=== PATIENT | female | born 1970 | race Caucasian/White ===

== ENCOUNTER → 2017-07-02 | Outpatient (CLI) | payer BC ==
[~2017-07-02] MED LIST: ESCI1TAB10 PO; LSX40 PO
--- NOTE | 2017-07-02 14:32 | MAMMOGRAPHY REPORT ---
BILATERAL DIGITAL DIAGNOSTIC MAMMOGRAM TOMOSYNTHESIS WITH CAD AND TARGETED LEFT ULTRASOUND: 07/02/2017 CLINICAL HISTORY: The patient reports a palpable left breast lump for a few days. TECHNIQUE: Breast tomosynthesis in addition to standard 2D mammography was performed. Current study was also evaluated with a Computer Aided Detection (CAD) system. Bilateral CC and MLO 2-D and tomosy nthesis images and spot magnification right cc and ML views were obtained. COMPARISON: Comparison is made to exams dated: 11/17/2013 mammogram, 07/08/2012 mammogram, 07/08/2012 ul trasound, and 07/06/2012 mammogram - [facility]. BREAST COMPOSITION: The tissue of both breasts is extremely dense, which lowers the sensitivity of m ammography. FINDINGS: A triangle marker ibarra the site of the palpable lump in the left upper outer quadrant ant eriorly. At the site of the palpable lump there is a superficial oval 12 mm mass with partially circ umscribed and partially obscured margins. In the right 12:00 breast anteriorly, there is a small 3 m m cluster of faint punctate and amorphous calcifications. The calcifications are increased compared to prior 2013 and 2011 exams and are therefore indeterminant. The remainder of both breasts are not significantly changed, without suspicious masses, calcifications, or areas of architectural distortio n noted. Targeted ultrasound was performed of the area of the palpable lump pointed out by the patient, in the left breast at 1:00 approximately 3 cm from the nipple. At the site of the palpable lump there is a n oval hypoechoic solid 1.2 x 1.2 x 0.8 cm mass. This corresponds with the mammographic mass and is indeterminant. Ultrasound guided core needle biopsy is recommended for further evaluation. A few ot her small anechoic masses are seen within the left 1:00 breast, consistent with cysts. IMPRESSION: ACR BI-RADS CATEGORY 4: SUSPICIOUS, TARGETED ULTRASOUND ACR BI-RADS CATEGORY 4: SUSPICIO US 1. The palpable lump corresponds with a solid hypoechoic 1.2 cm mass in the left breast at 1:00. Th e mass is indeterminate and ultrasound-guided core needle biopsy is recommended for further evaluatio n. This may represent a fibroadenoma. 2. Small 3 mm cluster of calcifications in the right 12:00 anterior breast, increased compared to pr ior exams and is therefore indeterminant. Stereotactic biopsy is recommended for further evaluation. A phone call was made to the physician's office to confirm faxed results were received. The patient has been verbally notified of the results. She tentatively scheduled the biopsies before leaving the department. Approximately 10% of breast cancers are not detected with mammography. A negative mammographic report should not delay biopsy if a clinically suggestive mass is present. Smiley Johansen M.D. ah/:07/02/2017 10:30:36 Assistant Associate Professor: Robina BENZ(R)(Puneet), [facility] letter sent: Abnormal 4/5 BI-RADS Code: ACR BI-RADS Category 4: Suspicious Ultrasound BI-RADS: ACR BI-RADS Category 4: Suspici ous
== END | disposition home or self-care (01) ==
LOC: C.MAMM 09:06
PROVIDERS: ATTEND Family Medicine
DX: N63 Unspecified lump in breast (principal); R92.1 Mammographic calcification found on diagnostic imaging of breast

== ENCOUNTER → 2017-07-16 | Outpatient (CLI) | payer BC ==
--- NOTE | 2017-07-16 13:05 | Discharge Instructions ---
Discharge Instructions Procedure Procedure Date: Jul 16, 2017. Reason for visit: Right Calcs/Us Core Left Mass. Discharge Discharge Date: Jul 16, 2017. Discharge Diagnosis: status post breast biopsy Instructions Activity Recommendations: Additional Limitations (see below) Return to School/Work: no limitations Recommended Home Diet: No Limitations Provider Instructions: ACTIVITY RECOMMENDATIONS: * No lifting, pushing, pulling or exercising the affected side for three days. RETURN TO SCHOOL/WORK: * You may return to work/school after the procedure, but do not perform any strenuous activities for 24 to 48 hours. MEDICATIONS: * Tylenol (two 325 mg) every four to six hours if needed for mild pain (if not allergic to Tylenol). DIET: * Resume previous diet. SPECIAL CARE INSTRUCTIONS: * Keep biopsy site dry for 24 hours. May shower after 24 hours, but do not soak (bathe) incision. * May remove Tegaderm (plastic patch) tomorrow AFTER showering. * Leave the steri-strips on for one week. Allow the steri-strips to fall off by themselves. If not off after one week, you may remove them. You may place a Bandaid crosswise over the strips, if desired. * Apply ice 10 minutes on and 10 minutes off as needed. * Wear a bra at bedtime to sleep more comfortably for 2-3 days. * Your referring physician should have the results after approximately 5 to 7 business days. * Call for unusual bleeding, fever, drainage, etc or if you have any questions call during normal business hours or after hours call Dr Johansen, . FOLLOW UP VISIT: Follow-up with Referring Physician as scheduled. Allergies Coded Allergies: No Known Allergies (Unverified , 11/10/15) Jalil Cabrera Recommendations: Call your doctor if: * Temperature above 101 degrees * Pain not relieved by pain medicine ordered * There is increased drainage or redness from any incision * You have any unanswered questions or concerns. Your Doctors Instructions noted above were prepared by provider Smiley Johansen. Patient Signature Section: Patient Instructions Signature Page Yamila Bowman Patient (or Guardian) Signature/Date: I have read and understand the instructions given to me by my caregivers. Caregiver/RN/Doctor Signature/Date: The above-named patient and/or guardian has received patient instructions on this date. + Original Patient Signature Page (only) stays with chart. Please make copy for patient.
--- NOTE | 2017-07-16 15:31 | MAMMOGRAPHY REPORT ---
ULTRASOUND GUIDED BIOPSY LEFT BREAST: 07/16/2017 CLINICAL HISTORY: Left 1:00 breast mass. PATIENT CONSENT: The procedure, risks and benefits were discussed with the patient and informed writt en consent was obtained. A timeout was performed immediately prior to the procedure. PROCEDURE DESCRIPTION: With ultrasound guidance, aseptic technique, and lidocaine as the local anesth etic (1% lidocaine to anesthetize the skin and 1% lidocaine with epinephrine to anesthetize the deepe r tissues), the mass of concern in the left 1:00 breast was sampled 3 times with a 14-gauge Achieve b iopsy needle. Immediately thereafter, with ultrasound guidance, aseptic technique, and lidocaine as the local anesthetic, a metallic localizer clip was placed centrally in the mass. Direct pressure w as applied to the site immediately post procedure and hemostasis was achieved. Postprocedure unilate ral mammograms were performed to confirm placement of the clip in the expected location of the breast mass. The patient tolerated the procedure without complication. She was given wound care instructi ons. The specimens were sent to pathology for analysis. COMPARISON: Comparison is made to exams dated: 07/16/2017 mammogram, 07/02/2017 ultrasound, 07/02/2017 m ammogram, and 11/17/2013 mammogram - [facility]. IMPRESSION: ULTRASOUND GUIDED BIOPSY Ultrasound guided core needle biopsy of the left 1:00 breast mass, with clip placement. The patient will receive pathology results from her referring provider. Smiley Johansen M.D. ah/:07/16/2017 13:06:33 Attending Technologist: Millie BENZ(Juan Pablo)(M), [facility] Catalogue Compiler: Smiley Johansen MD, [facility]
--- NOTE | 2017-07-16 15:31 | MAMMOGRAPHY REPORT ---
STEREOTACTIC GUIDED BIOPSY RIGHT BREAST: 07/16/2017 CLINICAL HISTORY: Right 12:00 anterior breast calcifications. PATIENT CONSENT: The procedure, risks, benefits, and alternatives of stereotactic biopsy with clip pl acement were discussed with the patient, and verbal and written consent was obtained. A timeout was performed immediately prior to the procedure. PROCEDURE DESCRIPTION: With stereotactic guidance, aseptic technique, and lidocaine as a local anesth etic (1% lidocaine to anesthetize the skin and 1% lidocaine with epinephrine to anesthetize the deepe r tissues), the area of concern in the right 12:00 anterior breast was sampled multiple times with a 9-gauge vacuum-assisted biopsy needle ([employer]). The path of approach was craniocaudal. The spe cimen radiograph demonstrates calcifications to be present in the samples. The samples containing ca lcifications (labeled "A") were from the samples without calcifications (labeled "B "). A metallic marker clip was placed at the biopsy site. This was confirmed on postprocedure mammograms. Direct pressure was applied at the biopsy site and hemostasis was readily achieved. The patient parker erated the procedure without complication. She was given wound care instructions. COMPARISON: Comparison is made to exams dated: 07/16/2017 mammogram, 07/02/2017 ultrasound, 07/02/2017 m ammogram, and 11/17/2013 mammogram - [facility]. IMPRESSION: STEREOTACTIC GUIDED BIOPSY Stereotactic biopsy of indeterminate calcifications in the right 12:00 anterior breast, with clip debbie cement. The patient will receive pathology results from her referring provider. Smiley Johansen M.D. ah/:07/16/2017 13:39:44 Attending Technologist: Radha Del Cid RT(R)(M), [facility] Chicken Cutter: Millie Chin RT(R)(M), [facility]
--- NOTE | 2017-07-16 15:34 | MAMMOGRAPHY REPORT ---
BILATERAL DIGITAL DIAGNOSTIC MAMMOGRAM TOMOSYNTHESIS: 07/16/2017 CLINICAL HISTORY: Status post right breast stereotactic biopsy and status post left breast ultrasound -guided biopsy. TECHNIQUE: Breast tomosynthesis in addition to standard 2D mammography was performed. Right CC and ML 2-D views and left CC and ML tomosynthesis images including C views were obtained. COMPARISON: Comparison is made to exams dated: 07/02/2017 ultrasound, 07/02/2017 mammogram, 11/17/2013 m ammogram, 07/08/2012 mammogram, 07/08/2012 ultrasound, and 07/06/2012 mammogram - [facility]. BREAST COMPOSITION: The tissue of both breasts is extremely dense, which lowers the sensitivity of m ammography. FINDINGS: A preprocedural right cc view was obtained for biopsy planning purposes. Post procedural right CC and ML views were obtained, which shows a new biopsy marker clip at the site of the biopsied calcifications in the right 12:00 subareolar breast. No significant postbiopsy hematoma is seen. Postprocedural left CC and ML views were obtained, which shows a new biopsy marker clip at the site o f the biopsied mass in the left 1:00 breast. No significant postbiopsy hematoma is seen. IMPRESSION: POST PROCEDURE IMAGING FOR MARKER PLACEMENT New biopsy marker clips status post bilateral breast biopsies. Pathology results are pending. Approximately 10% of breast cancers are not detected with mammography. A negative mammographic report should not delay biopsy if a clinically suggestive mass is present. Smiley Johansen M.D. ah/:07/16/2017 13:56:59 Attending Technologist: Radha Del Cid RT(R)(M), [facility] Tire And Tube Repairer: Millie Chin RT(R)(M), [facility] BI-RADS Code: Post Procedure Imaging For Marker Placement
== END | disposition home or self-care (01) ==
LOC: C.MAMM 12:27
PROVIDERS: ATTEND Family Medicine
DX: R92.0 Mammographic microcalcification found on diagnostic imaging of breast (principal); N63 Unspecified lump in breast

== ENCOUNTER 2023-10-14 16:54 | Inpatient (IN) ==
--- NOTE | 2023-10-14 17:00 | ED Triage Note ---
Date of Service October 14, 2023 History of Present Illness This patient was briefly evaluated while in triage. An abbreviated physical exam was performed. This patient is a 53-year-old Female who presents to the ED for evaluation of abd pain wednesday night. Pain went away on Wednesday but now abd tenderness and dark urine and dark/yellowing into eyes. Physical Exam GENERAL: 53 year old female. In no acute distress. SKIN: No lesions or rashes. HEART: Regular rate and rhythm. LUNGS: Clear to auscultation. ABDOMEN: Bowel sounds normoactive. No guarding or rigidity. NEURO: Alert and oriented. No deficits. MUSCULOSKELETAL: No deformities to inspection of the extremities. PSYCH: Patient is pleasant and answers all questions appropriately. Initial orders for labs and / or imaging were placed and patient was placed in the waiting area until a bed is available. Please see further documentation for the full ED course.
--- NOTE | 2023-10-14 17:19 | Emergency Department Note ---
History of Present Illness General Chief complaint: Abdominal Pain Stated complaint: ABD PAIN Time Seen by Provider: 10/14/23 17:04 History of Present Illness Maximum Pain Intensity: 1 This is a 53-year-old female that presents to the emergency department be a private vehicle with complaints of "yellow urine, yellow eyes, RUQ abd discomfort". She notes pain started in the RUQ on this past Wednesday and then nearly resolved by Wednesday of this week. She has out pt labs and ultrasound of the RUQ performed today. They were abnormal and she was sent here. No fevers. Pain 11/24. Home Medications Medication Instructions Recorded Confirmed Type aripiprazole 5 mg tablet 5 mg PO DAILY 10/14/23 10/14/23 History dextroamphetamine-amphetamine 10 10 mg PO DAILY 10/14/23 10/14/23 History mg tablet escitalopram oxalate 10 mg tablet 10 mg PO DAILY 10/14/23 10/14/23 History escitalopram oxalate 20 mg tablet 20 mg PO HS 10/14/23 10/14/23 History lamotrigine 200 mg tablet 200 mg PO DAILY 10/14/23 10/14/23 History lisdexamfetamine 40 mg capsule 40 mg PO DAILY 10/14/23 10/14/23 History Allergies Allergy/AdvReac Type Severity Reaction Status Date / Time No Known Allergies Allergy Verified 10/14/23 19:25 Past Med/Surg History Surgical History Hx of oral surgery Family History (Updated 06/27/21 @ 11:20 by MARIKA Vasquez) Mother Thyroid disorder Hypertension Social History Smoking Status: Never smoker Hx Alcohol Use: No Hx Substance Use: No Preferred Language: Mexican Communication Ability: Effective Industrial Controls Technician Required: No Beliefs That Will Affect Care: None Feels Safe at Home: Yes Safety Concerns: Feels Safe At This Time Physical Activity Frequency: Does not Exercise Assistive Devices: None Review of Systems A total of 10 systems reviewed and were otherwise negative Physical Exam Vital Signs Vital Signs - 24 hr 10/14/23 16:57 Temperature 36.5 C Temperature Source Temporal Artery Scan Pulse Rate 69 Pulse Rhythm Regular Respiratory Rate 16 Respiratory Effort / Characteristics Non-Labored Spontaneous Respiratory Depth Normal Blood Pressure 130/92 Blood Pressure Mean 104 Pulse Oximetry 97 Oxygen Delivery Method Room Air Sepsis Recent Fever Within 48 Hours No Sepsis New/Unexplained Change in Mental Status No Sepsis Action Taken by Nursing No Action Required VITAL SIGNS - Vital signs and nursing notes were reviewed. Stable and afebrile. GENERAL -53-year-old female appearing her stated age who is in no acute distress. Communicates well with provider and answers questions appropriately. SKIN - Without rashes, mild jaundice. HEAD - NC/AT. EYES - Sclera mildly icteric. NOSE - Midline and without cyanosis. No epistaxis or purulent drainage noted. MOUTH/OROPHARYNX - Without perioral cyanosis. NECK - No nuchal rigidity. LUNGS - CTA CARDIAC - RRR ABDOMEN - Abdominal contour normal without pulsations or visible masses. No guarding or rigidity. No TTP. EXTREMITIES - No clubbing or peripheral cyanosis. NEUROLOGIC -no deficits. PSYCH - A&O Course Administered Medications Lactated Ringer's (Lr) 1,000 mls @ 80 mls/hr IV .[id number] [facility] Stop: 10/15/23 22:44 Last Infusion: 10/15/23 00:17 Dose: 0 mls/hr Documented By: Admin: 10/14/23 22:09 Dose: 80 mls/hr Documented By: FIOR Piperacillin Sod/Tazobactam (Sod 4.5 gm/ Dextrose) 100 mls @ 25 mls/hr IV Q8H [facility]; Protocol Stop: 10/25/23 00:59 Last Admin: 10/15/23 00:15 Dose: 25 mls/hr Documented By: FIOR Discontinued Medications Piperacillin Sod/Tazobactam Sod (Zosyn) 4.5 gm in 100 mls @ 200 mls/hr IV NOW ONE Stop: 10/14/23 19:03 Last Infusion: 10/14/23 20:04 Dose: Infused Documented By: Admin: 10/14/23 19:34 Dose: 200 mls/hr Documented By: KEVIN Medical Decision Making Laboratory Data 10/14/23 17:32 10/14/23 17:32 Lab Results 10/14/23 10/14/23 Range/Units 17:32 17:36 WBC 3.99 L (4.8-10.8) K/ul RBC 4.32 (4.20-5.40) M/uL Hgb 12.7 (12.0-16.0) g/dl Hct 38.6 (37.0-47.0) % MCV 89.4 (80.0-100.0) fL MCH 29.4 (25.0-34.0) pg MCHC 32.9 (32.0-36.0) g/dL RDW Std Deviation 39.4 (36.4-46.3) fL RDW Coeff of Robert 11.9 (11.5-14.5) % Plt Count 206 (130-400) K/uL MPV 11.4 (9.4-12.4) fL Immature Gran % (Auto) 0.0 % Neut % (Auto) 52.9 % Lymph % (Auto) 32.3 % Keith % (Auto) 10.3 % Eos % (Auto) 4.0 % Baso % (Auto) 0.5 % Neut # (Auto) 2.11 (1.40-6.50) K/uL Lymph # (Auto) 1.29 (1.20-3.40) K/uL Keith # (Auto) 0.41 (0.11-0.59) K/uL Eos # (Auto) 0.16 (0.00-0.50) K/uL Baso # (Auto) 0.02 (0.00-0.20) K/uL Immature Gran # (Auto) 0.00 L (0.01-0.20) K/uL Sodium 138 (136-145) mmol/L Potassium 4.0 (3.5-5.1) mmol/L Chloride 104 (98-107) mmol/L Carbon Dioxide 27 (21-32) mmol/L Anion Gap 7 (3-11) BUN 12 (6-23) mg/dl Creatinine 0.75 (0.6-1.2) mg/dl Est Cr Clr Drug Dosing 76.8 ml/min Est GFR ( Amer) 104.0 ml/min Est GFR (Non-Af Amer) 89.7 ml/min BUN/Creatinine Ratio 16.0 (10-20) Glucose 84 (70-99(Fasting)) mg/dl Calcium 9.8 (8.6-10.3) mg/dl Total Bilirubin 6.0 H (0.2-1.0) mg/dl AST 367 H (13-39) U/L ALT 604 H (7-52) U/L Alkaline Phosphatase 178 H (34-104) U/L Total Protein 7.8 (6.0-8.3) gm/dl Albumin 4.9 (3.4-5.0) gm/dl Globulin 2.9 (2.5-4.0) gm/dl Albumin/Globulin Ratio 1.7 (0.9-2) Lipase 96 H (11-82) U/L Urine Color Dark Yellow Urine Appearance Clear (Clear) Urine pH 5.5 (4.5-7.5) Ur Specific [place] 1.008 (1.000-1.030) Urine Protein Negative (Negative) Urine Glucose (UA) Negative (Negative) Urine Ketones Negative (Negative) Urine Blood Negative (Negative) Urine Nitrite Negative (Negative) Urine Bilirubin 1+ H (Negative) Urine Urobilinogen Negative (Negative) Ur Leukocyte Esterase Negative (Negative) MDM Narrative Patient was seen and evaluated as above in triage area noting period of high volume and acuity in the emergency department. Following my evaluation of the patient in the triage area, I did review imaging performed earlier today and also obtain laboratory studies here. Options of care were discussed with the patient. She is well-appearing and nontoxic. Vital signs are stable. Labs reveal mild leukopenia 3.99. No anemia. There is elevation of T. bili at 6, AST 367, ALT 604, alk phos 178. Lipase 96. Urinalysis reveals 1+ bilirubin. Ultrasound from earlier today reveals per radiologist: 1. Choledocholithiasis with at least mild intra and extrahepatic biliary ductal dilatation. GI assessment is advised. 2. Distended gallbladder with stones and sludge. There is no definitive sonographic evidence of acute cholecystitis. If there still clinical concern for acute cholecystitis a nuclear hepatobiliary scan should be obtained. 3. Trace pericholecystic fluid is observed. The patient clinical presentation does fit with these findings. I did discuss these with the on-call elevator constructor electric. At 1829 HRS: I spoke with Dr. Bruner. At this time we will proceed with broad-spectrum IV antibiotics, n.p.o. after midnight, ERCP tomorrow. I then ordered IV Zosyn as a broad-spectrum antibiotic as EMR reveals no known allergies. Patient also denies any known medication allergies. It is felt that the benefit of the medication outweighs risk. Case then discussed with the hospitalist service. Please refer to further documentation regarding her stay. Patient amenable to plan as noted above. GCS: 15 In the evaluation and treatment of this patient, the following differential diagnoses were considered: ASC, MD, Pneumonia, GERD, Cholecystitis, Ascending Cholangitis, Cholydocholithiasis, Bowel Obstruction, PE, Amongst Others. Impression & Plan Choledocholithiasis, Transaminitis Discharge Plan Visit Data Chief Complaint: Abdominal Pain Stated Complaint: ABD PAIN ED Provider: Austin Camacho ED Midlevel Provider: Williams Julio Discharge Problem: Choledocholithiasis, Transaminitis Patient Disposition: Admitted As Inpatient Condition: Good Discharge Instructions Interventions: ED Discharge Assessment Last Done: 10/14/23 20:38
[2023-10-14 17:46] LABS: Appearance Urine Clear (Clear); Blood Urine Negative (Negative); Color Urine Dark Yellow; Glucose Urine UA Negative (Negative); Ketones Urine Negative (Negative); Leukocyte Esterase Urine Negative (Negative); Nitrite Urine Negative (Negative); Protein Urine Negative (Negative); Specific Gravity Urine 1.008 (1.000-1.030); Urobilinogen Urine Negative (Negative); pH Urine 5.5 (4.5-7.5)
[2023-10-14 17:49] LABS: Basophils # (auto) 0.02 K/uL (0.00-0.20); Basophils % (auto) 0.5 %; Eosinophils # (auto) 0.16 K/uL (0.00-0.50); Hematocrit (blood only) 38.6 % (37.0-47.0); Hemoglobin 12.7 g/dl (12.0-16.0); Lymphocytes # (auto) 1.29 K/uL (1.20-3.40); Lymphocytes % (auto) 32.3 %; Mean Corpuscular Hemoglobin 29.4 pg (25.0-34.0); Mean Corpuscular Hgb Conc 32.9 g/dL (32.0-36.0); Mean Corpuscular Volume 89.4 fL (80.0-100.0); Mean Platelet Volume 11.4 fL (9.4-12.4); Monocytes # (auto) 0.41 K/uL (0.11-0.59); Monocytes % (auto) 10.3 %; Neutrophils # (auto) 2.11 K/uL (1.40-6.50); Neutrophils % (auto) 52.9 %; Platelet Count 206 K/uL (130-400); RDW Coefficient of Variation 11.9 % (11.5-14.5); RDW Standard Deviation 39.4 fL (36.4-46.3); Red Blood Count 4.32 M/uL (4.20-5.40); White Blood Count 3.99 K/ul (4.8-10.8)
[2023-10-14 17:56] LABS: Bilirubin Urine 1+ (Negative)
[2023-10-14 18:05] LABS: Calcium 9.8 mg/dl (8.6-10.3); Creatinine Clr Calc Pharmacy 76.8 ml/min; Est GFR (Non-African American) 89.7 ml/min
[2023-10-14 18:22] LABS: Albumin Globulin Ratio 1.7 (0.9-2); Albumin Level 4.9 gm/dl (3.4-5.0); Globulin 2.9 gm/dl (2.5-4.0); Total Protein 7.8 gm/dl (6.0-8.3)
[2023-10-14] MEDS ORDERED: PIPERACILLIN/TAZOBACTAM 4.5 GM/100 ML BAG IV ONE (18:34)
--- NOTE | 2023-10-14 19:26 | History & Physical Report ---
Date of Service October 14, 2023 Assessment & Plan (1) Choledocholithiasis: Plan: -Pt presenting with symptomatic choledocholithiasis with currently low concern for acute cholangitis -Exam and imaging does not suggest acute cholecystitis at present, we will defer surgery consult -GI consulted, awaiting recommendations -NPO for possible ERCP in AM -Continue mIVF -Continue Zosyn for now -Zofran PRN nausea, Toradol PRN pain -Trend CBC, CMP (2) Anxiety and depression: Plan: -Continue Lexapro -Pt also takes Abilify, atomoxetine and lamotrigine but doses could not be verified in [facility] EMR or [facility] EMR. Hold for now while NPO until verified in AM (3) Transaminitis: Plan: -Likely reactive to hepatobiliary obstruction -Management as above -Trend CMP Plan FENGI: NPO, IVF Code status: Full DVT prophylaxis: SCDs Isolation: None Unit: Medical/surgical Disposition planning: Likely home History of Present Illness Chief Complaint: Jaundice Primary Care Provider: Sloane Bailey DO Pt is 53 yo F with PMH depression/anxiety presenting with jaundice. Pt reports onset of sharp moderate severity RUQ pain on 10/10 about 5 hours after eating large meal heavy in oils/fats. Pain resolved transiently on 10/11. Reports dark urine on 10/11 which has been occurring intermittently since then. Noticed scleral icterus on 10/14 but has not had any further abdominal pain. Denies nausea, vomiting, fever, chills. Pt arrived to ER hemodynamically stable. Initial evaluation significant for AST 367, ALT 604, ALP 178, lipase 96, UA with 1+ bilirubin. RUQ US w/ choledocholithiasis and intra/extrahepatic biliary ductal dilatation, distended gallbladder with stones and sludge but no evidence of acute cholecystitis. ER interventions include Zosyn. At present, pt reports feeling well w/o acute complaint aside from continued mild icterus. Allergies Allergy/AdvReac Type Severity Reaction Status Date / Time No Known Allergies Allergy Verified 10/14/23 19:25 Home Medications Medication Instructions Recorded Confirmed Type aripiprazole 5 mg tablet 5 mg PO DAILY 10/14/23 10/14/23 History dextroamphetamine-amphetamine 10 10 mg PO DAILY 10/14/23 10/14/23 History mg tablet escitalopram oxalate 10 mg tablet 10 mg PO DAILY 10/14/23 10/14/23 History escitalopram oxalate 20 mg tablet 20 mg PO HS 10/14/23 10/14/23 History lamotrigine 200 mg tablet 200 mg PO DAILY 10/14/23 10/14/23 History lisdexamfetamine 40 mg capsule 40 mg PO DAILY 10/14/23 10/14/23 History Past Med/Surg History Surgical History Hx of oral surgery Family History (Updated 06/27/21 @ 11:20 by MARIKA Vasquez) Mother Thyroid disorder Hypertension Social History Smoking Status: Never smoker Hx Alcohol Use: Yes Alcohol Intake Frequency: 2-4 x/Month Hx Substance Use: No Feels Safe at Home: Yes Physical Activity Frequency: Does not Exercise Review of Systems Review of Systems: Per HPI/Subjective Physical Exam Physical Exam: General: well-appearing, no acute distress HEENT: PERRL, EOMI, conjunctivae clear without injection, mildy icteric sclerae, moist mucous membranes, clear oropharynx without exudate or erythema Neck: supple, trachea midline, no thyromegaly, no JVD, no cervical lymphadenopathy CV: RRR, normal S1 and S2, no murmurs Resp: CTAB, no increased work of breathing, no crackles or wheezes Abd: Soft, mild RUQ tenderness, negative Pérez sign, nondistended, no guarding or rebound, no hepatosplenomegaly MSK: Normal bulk of all four extremities Neuro: AOx3, no focal motor or sensory deficits Skin: no rashes or lesions, warm and dry, very faint jaundice Ext: no LE peripheral edema or erythema, capillary refill <2s in all four extremities, 2+ LE peripheral pulses b/l Results & Data Results & Data Vital Signs (Past 12 Hours) Vital Signs Temp Pulse Resp BP Pulse Ox O2 Del Method 10/14/23 16:57 36.5 C 69 16 130/92 97 Room Air Laboratory Results Laboratory Results WBC 3.99 K/ul (4.8-10.8) L 10/14/23 17:32 RBC 4.32 M/uL (4.20-5.40) 10/14/23 17:32 Hgb 12.7 g/dl (12.0-16.0) 10/14/23 17: Hct 38.6 % (37.0-47.0) 10/14/23 17: MCV 89.4 fL (80.0-100.0) 10/14/23 17: MCH 29.4 pg (25.0-34.0) 10/14/23 17: MCHC 32.9 g/dL (32.0-36.0) 10/14/23 17: RDW Std Deviation 39.4 fL (36.4-46.3) 10/14/23 17: RDW Coeff of Robert 11.9 % (11.5-14.5) 10/14/23 17: Plt Count 206 K/uL (130-400) 10/14/23 17: MPV 11.4 fL (9.4-12.4) 10/14/23 17: Immature Gran % (Auto) 0.0 % 10/14/23 17:32 Neut % (Auto) 52.9 % 10/14/23 17:32 Lymph % (Auto) 32.3 % 10/14/23 17:32 Rincon % (Auto) 10.3 % 10/14/23 17:32 Eos % (Auto) 4.0 % 10/14/23 17:32 Baso % (Auto) 0.5 % 10/14/23 17:32 Neut # (Auto) 2.11 K/uL (1.40-6.50) 10/14/23 17:32 Lymph # (Auto) 1.29 K/uL (1.20-3.40) 10/14/23 17:32 Rincon # (Auto) 0.41 K/uL (0.11-0.59) 10/14/23 17:32 Eos # (Auto) 0.16 K/uL (0.00-0.50) 10/14/23 17:32 Baso # (Auto) 0.02 K/uL (0.00-0.20) 10/14/23 17:32 Immature Gran # (Auto) 0.00 K/uL (0.01-0.20) L 10/14/23 17:32 Sodium 138 mmol/L (136-145) 10/14/23 17:32 Potassium 4.0 mmol/L (3.5-5.1) 10/14/23 17:32 Chloride 104 mmol/L (98-107) 10/14/23 17:32 Carbon Dioxide 27 mmol/L (21-32) 10/14/23 17:32 Anion Gap 7 (3-11) 10/14/23 17:32 BUN 12 mg/dl (6-23) 10/14/23 17:32 Creatinine 0.75 mg/dl (0.6-1.2) 10/14/23 17:32 Est Cr Clr Drug Dosing 76.8 ml/min 10/14/23 17:32 Est GFR ( Amer) 104.0 ml/min 10/14/23 17:32 Est GFR (Non-Af Amer) 89.7 ml/min 10/14/23 17:32 BUN/Creatinine Ratio 16.0 (10-20) 10/14/23 17:32 Glucose 84 mg/dl (70-99(Fasting)) 10/14/23 17:32 Calcium 9.8 mg/dl (8.6-10.3) 10/14/23 17:32 Total Bilirubin 6.0 mg/dl (0.2-1.0) H 10/14/23 17:32 AST 367 U/L (13-39) H 10/14/23 17:32 ALT 604 U/L (7-52) H 10/14/23 17:32 Alkaline Phosphatase 178 U/L (34-104) H 10/14/23 17:32 Total Protein 7.8 gm/dl (6.0-8.3) 10/14/23 17:32 Albumin 4.9 gm/dl (3.4-5.0) 10/14/23 17:32 Globulin 2.9 gm/dl (2.5-4.0) 10/14/23 17:32 Albumin/Globulin Ratio 1.7 (0.9-2) 10/14/23 17:32 Lipase 96 U/L (11-82) H 10/14/23 17:32 Urine Color Dark Yellow 10/14/23 17:36 Urine Appearance Clear (Clear) 10/14/23 17:36 Urine pH 5.5 (4.5-7.5) 10/14/23 17:36 Ur Specific [place] 1.008 (1.000-1.030) 10/14/23 17:36 Urine Protein Negative (Negative) 10/14/23 17:36 Urine Glucose (UA) Negative (Negative) 10/14/23 17:36 Urine Ketones Negative (Negative) 10/14/23 17:36 Urine Blood Negative (Negative) 10/14/23 17:36 Urine Nitrite Negative (Negative) 10/14/23 17:36 Urine Bilirubin 1+ (Negative) H 10/14/23 17:36 Urine Urobilinogen Negative (Negative) 10/14/23 17:36 Ur Leukocyte Esterase Negative (Negative) 10/14/23 17:36 Diagnostic Findings [place] [phone] Ultrasound Report Patient: KELLY IRENE Admit Date: 10/14/23 MR#: [id number] Address1: [address] [place] [address] Acct ID:[id number] Address2: Date: 1970 [facility] Zip: [place] [address] Age: 53 Location: [place] Sex: F Room/Bed: Att Phy: Lisandro Grey MD Diagnosis: RUQ PAIN Leia Phy: Sloane BaileyDLinoO. Service Date: 10/14/23 Fam Phy: Interpreting Phy: Johan Torres MDAdmit Phy: Ordering Phy: Lisandro Grey MD cc: ~ ULTRASOUND RIGHT UPPER QUADRANT ABDOMEN CLINICAL HISTORY: Right upper quadrant abdominal pain. COMPARISON STUDY: Abdominal CT dated 11/10/2015 TECHNIQUE: Real-time, grayscale, and color flow sonography of the right upper quadrant of the abdomen was performed. Images are reviewed in the transverse and longitudinal planes. FINDINGS: Liver: The liver is normal in size and echotexture. There is at least mild intrahepatic biliary ductal dilatation. The main portal vein is patent. Gallbladder: The gallbladder is distended, containing both stones and sludge. There is trace pericholecystic fluid. No gallbladder wall thickening is identified. A sonographic Pérez's sign is reportedly absent. A 5 mm gallstone is seen within the common bile duct. The common bile duct is dilated, measuring up to 0.9 cm in diameter. Pancreas: Visualized portions of the pancreatic head and body are normal in appearance. Right kidney: Survey images of the right kidney demonstrate normal size and echotexture. There is no hydronephrosis. Ascites: None. IMPRESSION: 1. Choledocholithiasis with at least mild intra and extrahepatic biliary ductal dilatation. GI assessment is advised. 2. Distended gallbladder with stones and sludge. There is no definitive sonographic evidence of acute cholecystitis. If there still clinical concern for acute cholecystitis a nuclear hepatobiliary scan should be obtained. 3. Trace pericholecystic fluid is observed. ACT 112: Negative or not required by law. Electronically signed by: Johan Torres M.D. 10/14/2023 3:50 PM Dictated: 10/14/231546 Transcribed: 10/14/231546 Supervising Physician Co-Signing Physician Notes Patient seen and examined, chart reviewed, case discussed with Dr. Mojica and I agree with the assessment and plan as above. In brief, patient is a 53 female presenting with RUQ abdominal pain. Patient had an acute episode on 10/10/23 which resolved on its own. On 10/11/23 she developed tea colored urine, scleral icterus and jaundice. She denies fever, chills. Abdominal pain and nausea has resolved. No additional complaints at this time. In the ER patient is afebrile, HD stable, NAD Skin - mild jaundice, no rash HEENT - NC/AT, PERRL, MMM, Neck supple Heart - +S1/S2, regular, no m/r/g Lungs - CTA Abd - +BS, soft, NT/ND, no masses/organomegaly Ext - warm, well perfused, no clubbing/cyanosis or edema Labs and images reviewed. Significant for Tbili=6, FRM=739, PZK=714 AS=287 Lipase=96 Assessment/Plan 53yo female presenting with icterus/jaundice following an acute episode of RUQ pain 3 days ago. Labs are significant for abnormal LFTs in mixed obstructive/hepatocellular pattern with Tbili=6 and YZ=866. Abdominal ultrasound performed today with choledocholithiasis with mild intra and extrahepatic biliary ductal dilatation, distended gallbladder with stones and sludge -Admit to medical -GI Consultation appreciated -Continue Zosyn -Gentle IVF -Patient NPO after midnight for possible ERCP in the morning -Will need consultation with General Surgery to discuss cholecystectomy -Remainder of plan as above Resident Activity Tracking Resident Involvement: Resident Care Provided Care Provided: Adult [facility]
[2023-10-14] MEDS ORDERED: KETOROLAC TROMETHAMINE 15 MG/ML VIAL IV PRN (21:45)
[2023-10-14] MEDS ORDERED: ONDANSETRON INJ 2 MG/ML 2 ML VIAL IV PRN (21:45)
--- NOTE | 2023-10-14 21:54 | Billing Data ---
Date of Service October 14, 2023 Coding Level of Care Code 33512 INT INP/OBS CARE
[2023-10-14] MEDS ORDERED: PIPERACILLIN/TAZOBACTAM 4.5 GM in DEXTROSE 5% MINI-B 100 ML IV SCH (22:00)
[2023-10-14] MEDS: LACTATED RINGER'S 1,000 ML IV SCH (22:09)
[2023-10-15] MEDS: PIPERACILLIN/TAZOBACTAM 4.5 GM in DEXTROSE 5% MINI-B 100 ML IV SCH ×3 (00:15→16:02)
--- NOTE | 2023-10-15 06:45 | Hospitalist Progress Note ---
Date of Service October 15, 2023 Assessment & Plan (1) Choledocholithiasis: (2) Anxiety and depression: (3) Transaminitis: Plan Patient is 53 yo F with PMH depression/anxiety. Initial evaluation significant for AST 367, ALT 604, ALP 178, lipase 96, UA with 1+ bilirubin. RUQ US w/ choledocholithiasis and intra/extrahepatic biliary ductal dilatation, distended gallbladder with stones and sludge but no evidence of acute cholecystitis. ER interventions include Zosyn. Choledocholithiais -Pt presenting with symptomatic choledocholithiasis with currently low concern for acute cholangitis -Exam and imaging does not suggest acute cholecystitis at present, we will defer surgery consult -GI consulted: -ERCP completed in early PM: gallstone removal via balloon performed; stent placed in CBD - avoid aspirin and NSAIDs for 5 days - started on clear liquid diet today, mIVFs discontinued - F/U in 6 weeks for stent removal - continue on antibiotics for 14 days - consult, F/U w/ Gen Surg for possible elective cholecystectomy -Continue Zosyn for now -Zofran PRN nausea, Toradol PRN pain -Trend CBC, CMP Transaminitis -Likely reactive to hepatobiliary obstruction -Management as above -Trend CMP Anxiety/depression -Continue Lexapro -Pt also takes Abilify, atomoxetine and lamotrigine but doses could not be verified in [facility] EMR or [facility] EMR. Hold for now while NPO until verified in AM FENGI: NPO, IVF Code status: Full DVT prophylaxis: SCDs Isolation: None Unit: Medical/surgical Disposition planning: Likely home Admission and Anticipated Discharge Date Admission Date: October 14, 2023 Supervising Physician Co-Signing Physician Notes Attending attestation Pt seen and examined in concert with Dr. Vargas. In agreement with the documented findings as noted in the resident documentation with any exceptions or additions as noted here. Resting comfortably in bed without acute complaint at present. On examination, S1/S2 nl RRR no MCG. CTAB. Abd NT/ND BS+ve VS: 116/80, 64, 16, 36.6C, 97 RA Data: WBC 2.78, hgb 11.3, Cr 0.79, Alk phos 153, elevated LFTs Choledocholithaisis - GI consult - ERCP today and continue symptomatic care. Trend CBC, CMP. f/u GI recommendations post procedure Else see resident documentation as noted. Subjective Patient is 53 yo F with PMH depression/anxiety who presented to ED with jaundice.Pt reported onset of sharp moderate severity RUQ pain on 10/10 about 5 hours after eating large meal heavy in oils/fats. Pain resolved transiently on 10/11. Since then, pt noticed dark urine on 10/11 which has been occurring intermittently since then. Noticed scleral icterus on 10/14 but has not had any further abdominal pain. Denied nausea, vomiting, fever, chills. Pt arrived to ER hemodynamically stable. At present, pt reports feeling well with only minor epigastric and RUQ abdominal discomfort (12/25), continued mild icterus, and jaundiced skin. Review of Systems Constitutional: no fever, no chills and no body aches Respiratory: no cough, no chest congestion and no dyspnea Cardiovascular: no chest pain, no palpitations and no lightheadedness Gastrointestinal: + abdominal pain; no nausea (was nauseou s on Wednesday, started to get better Wed), no vomiting, no constipation and no diarrhea/loose stools Genitourinary: + problem reported (dark yellow colored urine); no dysuria, no urinary frequency and no urinary urgency Physical Exam Constitutional: WD/WN, vitals as above Eyes: + scleral abnormality (jaundiced sclera, most prominent in l. eye) Respiratory: normal respiratory effort, lungs clear to auscultation Cardiovascular: RRR, no murmur, no edema Gastrointestinal (Abdomen): Inspection/Auscultation: normal bowel sounds Percussion/Palpation: + abdomen tender; no splenomegaly Skin: + jaundice Psychiatric: A+Ox3, euthymic affect Results & Data Results & Data Vital Signs (Past 12 Hours) Vital Signs Temp Pulse Pulse Pulse Resp BP Pulse Ox 10/14/23 21:00 36.6 C 54 L 16 110/80 100 10/14/23 20:22 62 18 123/80 98 10/14/23 19:40 58 L O2 Del Method 10/14/23 21:00 Room Air 10/14/23 20:22 Room Air 10/14/23 19:40 Resident Activity Tracking Resident Involvement: Resident Care Provided Care Provided: Adult [facility]
--- NOTE | 2023-10-15 07:21 | Gastrointestinal Consultation ---
Date of Consultation October 15, 2023 Assessment & Plan (1) Choledocholithiasis: (2) Cholelithiasis: Gallbladder distention and stones on US. Will need eventual cholecystectomy. Plan - surgical consult for eventual cholecystectomy. - Agree w NPO, IV fluids and Zosyn. - ERCP today by Dr. Maximo Klein. Further recommendations to follow. ERCP procedure including risks of bleeding, perforation, pancreatitis were explained to the pt. She would like to go forward w the procedure. Supervising Physician Co-Signing Physician Notes I saw and evaluated the patient, she presents with signs and symptoms related to choledocholithiasis. ERCP has been requested for decompression of the biliary tree. I discussed risks and benefits of the procedure with the patient to include bleeding, infection, perforation, pain, failed biliary cannulation and the need for follow-up studies. History of Present Illness Reason for Consultation: symptomatic choledocholithiasis, ERCP Requesting Physician: Dr. Mojica Attending Physician: Marcel Hollis MD History of Present Illness Ms. Yamila Bowman is a 53 yr old female pt of Dr. Bailey w a hx of HTN, mood disorder, who presented to the ED yesterday for RUQ abd pain that began on Wednesday and has waxed/waned since then. She has had mild jaundice, dark urine. She has not had fevers, chills, sweats, diarrhea, vomiting or jason colored BMs. She has had some nausea. On arrival, LFTs were elevated w a T Bili of 6.0 and US from earlier on 10/14 showed Choledocholithiasis w mild intra/extrahepatic biliary ductal dilatation as well as a distended gallbladder w stones and sludge. This morning, she is hemodynamically stable, she is on Zosyn, doesn't have leukocytosis or fever, and reports mild epigastric tenderness on palpation, otherwise comfortable. She is NPO. 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 Allergies Allergy/AdvReac Type Severity Reaction Status Date / Time No Known Allergies Allergy Verified 10/14/23 19:25 Home Medications Medication Instructions Recorded Confirmed Type aripiprazole 5 mg tablet 5 mg PO DAILY 10/14/23 10/14/23 History dextroamphetamine-amphetamine 10 10 mg PO DAILY 10/14/23 10/14/23 History mg tablet escitalopram oxalate 10 mg tablet 10 mg PO DAILY 10/14/23 10/14/23 History escitalopram oxalate 20 mg tablet 20 mg PO HS 10/14/23 10/14/23 History lamotrigine 200 mg tablet 200 mg PO DAILY 10/14/23 10/14/23 History lisdexamfetamine 40 mg capsule 40 mg PO DAILY 10/14/23 10/14/23 History Patient History Surgical History Hx of oral surgery Family History Mother Thyroid disorder Hypertension Social History Smoking Status: Never smoker Hx Alcohol Use: No Hx Substance Use: No Preferred Language: Citizen Of [place] Communication Ability: Effective [id number] Android Developer Required: No Beliefs That Will Affect Care: None Feels Safe at Home: Yes Safety Concerns: Feels Safe At This Time Physical Activity Frequency: Does not Exercise Assistive Devices: None Review of Systems Review of Systems: ROS: Gen: Denies weakness, fevers, weight loss Eyes: No eye redness, or pain, no recent vision changes Resp: No SOB, no cough Cardio: No palpitations/irregular beats, no chest pain GI: As per HPI, otherwise (-) : Denies pain on urination Skin: No jaundice, itching or new rashes Physical Exam Constitutional: WD/WN, vitals as above Eyes: PEARLA, mild icterus ENMT: external ear and nose normal, oropharynx normal Neck: trachea midline, no thyromegaly Respiratory: normal respiratory effort, lungs clear to auscultation Cardiovascular: RRR, no murmur, no edema Gastrointestinal (Abdomen): soft, non tender, non distended, no masses, mild epigastric tenderness Musculoskeletal: no cyanosis or clubbing, extremities motor strength 5/5 Skin: mild jaundice, no rashes Neurologic: PERRL, EOMI, accommodation nl, no face palsy, no dysarthria Psychiatric: A+Ox3, euthymic affect Lymphatic: no cervical or axillary lymphadenopathy Results & Data Vital Signs (Past 12 Hours) Vital Signs Temp Pulse Pulse Pulse Resp BP Pulse Ox 10/14/23 21:00 36.6 C 54 L 16 110/80 100 10/14/23 20:22 62 18 123/80 98 10/14/23 19:40 58 L O2 Del Method 10/14/23 21:00 Room Air 10/14/23 20:22 Room Air 10/14/23 19:40 Laboratory Results WBC 3.9, Hb 12.7, Hct 38, Plts 206, Na 138, K 4.0, Cl 27, CO2 7, BUN 12, Cr 0.75, glucose 84. T Bili 6.0, AST 367, Alt 604, Alk Phos 178 lipase 96. Diagnostic Findings US 10/14/23 (outpatient account): 1. Choledocholithiasis with at least mild intra and extrahepatic biliary ductal dilatation. GI assessment is advised. 2. Distended gallbladder with stones and sludge. There is no definitive sonographic evidence of acute cholecystitis. If there still clinical concern for acute cholecystitis a nuclear hepatobiliary scan should be obtained. 3. Trace pericholecystic fluid is observed.
[2023-10-15] MEDS: ESCITALOPRAM OXALATE 20 MG TAB PO SCH (07:31)
[2023-10-15] MEDS: lamoTRIgine 100 MG TAB PO SCH (07:31)
[2023-10-15] MEDS: ARIPiprazole 5 MG TAB PO SCH (07:31)
[2023-10-15 08:32] LABS: Hemoglobin 11.3 g/dl (12.0-16.0); Mean Corpuscular Hgb Conc 34.2 g/dL (32.0-36.0); Mean Corpuscular Volume 87.5 fL (80.0-100.0); Mean Platelet Volume 11.5 fL (9.4-12.4); Platelet Count 175 K/uL (130-400); RDW Coefficient of Variation 12.1 % (11.5-14.5); RDW Standard Deviation 39.3 fL (36.4-46.3); Red Blood Count 3.77 M/uL (4.20-5.40); White Blood Count 2.78 K/ul (4.8-10.8)
--- NOTE | 2023-10-15 08:38 | Anesthesiology Consultation ---
Date of Service October 15, 2023 Assessment & Plan (1) Encounter for pre-operative examination: Chart Review Chart Review: Acceptable Risk for Surgery and Patient NOT seen in Pre Admission Testing Consults Requested none Additional Notes preop EKG ordered History Surgery Operation Date: 10/15/23 13:35 Proposed Procedures p Endoscopic Retrograde Cholangiopancreatogram - Maximo Klein, Height/Weight Height: 5 ft 6 in Weight: 55.5 kg Allergies Allergy/AdvReac Type Severity Reaction Status Date / Time No Known Allergies Allergy Verified 10/14/23 19:25 Medications Home Medications Medication Instructions Recorded Confirmed Last Taken aripiprazole 5 mg tablet 5 mg PO DAILY 10/14/23 10/14/23 Unknown dextroamphetamine-amphetamine 10 10 mg PO DAILY 10/14/23 10/14/23 Unknown mg tablet escitalopram oxalate 10 mg tablet 10 mg PO DAILY 10/14/23 10/14/23 Unknown escitalopram oxalate 20 mg tablet 20 mg PO HS 10/14/23 10/14/23 Unknown lamotrigine 200 mg tablet 200 mg PO DAILY 10/14/23 10/14/23 Unknown lisdexamfetamine 40 mg capsule 40 mg PO DAILY 10/14/23 10/14/23 Unknown Active Medications Generic Name Dose Route Start Last Admin Trade Name Freq PRN Reason Stop Dose Admin Aripiprazole 5 mg 10/15/23 09:00 10/15/23 07:31 Aripiprazole 5 Mg Tab PO 11/14/23 08:59 5 mg DAILY ALBIN Administration Escitalopram Oxalate 20 mg 10/15/23 09:00 10/15/23 07:31 Escitalopram Oxalate 20 Mg Tab PO 11/14/23 08:59 20 mg DAILY ALBIN Administration Lactated Ringer's 1,000 mls @ 80 mls/hr 10/14/23 21:45 10/15/23 03:56 Lr IV 10/15/23 22:44 80 mls/hr .[id number] ALBIN Infusion Piperacillin Sod/Tazobactam 100 mls @ 25 mls/hr 10/15/23 01:00 10/15/23 07:32 Sod 4.5 gm/ Dextrose IV 10/25/23 00:59 25 mls/hr Q8H ALBIN Administration Protocol Influenza Virus Vaccine Quadrival 0.5 ml 10/15/23 09:00 10/15/23 07:31 Influenza Virus Quadrivalent Vaccine (Iiv4) 0.5 Ml Syr IM 10/15/23 09:01 Not Given .ONCE ONE Lamotrigine 200 mg 10/15/23 09:00 10/15/23 07:31 Lamotrigine 100 Mg Tab PO 11/14/23 08:59 200 mg DAILY ALBIN Administration Past Family History Family History Mother Thyroid disorder Hypertension Past Surgical History Surgical History Hx of oral surgery Social History Smoking Status: Never smoker Hx Alcohol Use: No Hx Substance Use: No Physical Exam Vital Signs Last Vital Signs Temp 98.4 F 10/15/23 07:46 Pulse 59 L 10/15/23 07:46 Resp 16 10/15/23 07:46 BP 112/76 10/15/23 07:46 Pulse Ox 100 10/15/23 07:46 O2 Del Method Room Air 10/15/23 07:46 Testing Laboratory Results 10/15/23 08:07 Urine Color Dark Yellow 10/14/23 17:36 Urine Appearance Clear (Clear) 10/14/23 17:36 Urine pH 5.5 (4.5-7.5) 10/14/23 17:36 Ur Specific [place] 1.008 (1.000-1.030) 10/14/23 17:36 Urine Protein Negative (Negative) 10/14/23 17:36 Urine Glucose (UA) Negative (Negative) 10/14/23 17:36 Urine Ketones Negative (Negative) 10/14/23 17:36 Urine Nitrite Negative (Negative) 10/14/23 17:36 Ur Leukocyte Esterase Negative (Negative) 10/14/23 17:36
[2023-10-15 08:53] LABS: Albumin Globulin Ratio 1.6 (0.9-2); Albumin Level 3.9 gm/dl (3.4-5.0); BUN Creatinine Ratio 13.9 (10-20); Bilirubin,Total 3.4 mg/dl (0.2-1.0); Calcium 9.1 mg/dl (8.6-10.3); Creatinine Clr Calc Pharmacy 70.5 ml/min; Est GFR (African American) 97.7 ml/min; Est GFR (Non-African American) 84.3 ml/min; Globulin 2.4 gm/dl (2.5-4.0); Potassium 4.1 mmol/L (3.5-5.1); Total Protein 6.3 gm/dl (6.0-8.3)
[2023-10-15] MEDS ORDERED: ESCITALOPRAM OXALATE 10 MG TAB PO SCH (09:00)
[2023-10-15] MEDS ORDERED: INFLUENZA VIRUS QUADRIVALENT VACCINE (IIV4) 0.5 ML SYR IM ONE (09:00)
[2023-10-15] MEDS ORDERED: fentaNYL citrate PF 100 MCG/2 ML VIAL IV PRN (12:24)
[2023-10-15] MEDS ORDERED: ATROPINE SULFATE 0.1 MG/ML 10ML SYR IV PRN (12:24)
[2023-10-15] MEDS ORDERED: ePHEDrine sulfate 50 MG/ML AMP IV PRN (12:24)
[2023-10-15] MEDS ORDERED: ONDANSETRON INJ 2 MG/ML 2 ML VIAL IV PRN (12:24)
[2023-10-15] MEDS ORDERED: INDOMETHACIN 50 MG SUPP PR ONE (12:32)
[2023-10-15] MEDS ORDERED: MIDAZOLAM HCL 1 MG/ML 2ML VIAL ONE (12:35)
[2023-10-15] MEDS: LACTATED RINGER'S 1,000 ML IV SCH (12:35)
[2023-10-15] MEDS ORDERED: PROPOFOL IV EMULSION 10 MG/ML 20 ML VIAL IV ONE (12:35)
[2023-10-15] MEDS ORDERED: fentaNYL citrate PF 100 MCG/2 ML VIAL ONE (12:36)
--- NOTE | 2023-10-15 13:48 | Post Operative Brief Note ---
Immediate Post Op Note v1 Date of Surgery October 15, 2023 Pre & Post Diagnosis Operation Date: 10/15/23 13:35 Pre-Op Diagnosis: SYMPTOMATIC CHOLEDOCHOLITHIASIS Post-Op Diagnosis: balloon sweep, stent placed I identified the patient and participated in the time-out.: Yes Procedure Operation Date: 10/15/23 13:35 Actual Procedures p Endoscopic Retrograde Cholangiopancreato(Not Applicable) - Maximo Klein DO Surgeon Maximo Klein, DO Pipeline Superintendent none Estimated Blood Loss 0 Findings Consistent with Post-Op Diagnosis
[2023-10-15] MEDS ORDERED: ONDANSETRON INJ 2 MG/ML 2 ML VIAL ONE (13:49)
[2023-10-15] MEDS ORDERED: LIDOCAINE 2% 2 ML VIAL/AMP(20MG/ML) INFIL ONE (13:49)
[2023-10-15] MEDS ORDERED: DEXAMETHASONE SOD INJ 4 MG/ML VIAL ONE (13:49)
--- NOTE | 2023-10-15 13:49 | Communication Note ---
Date of Service: October 15, 2023 The patient underwent urgent ERCP today for suspected choledocholithiasis. Patient was found to have numerous stones within the common bile duct in addit ion to a large amount of sludge. This was treated with biliary sphincterotomy, gallstone extraction and bile duct stent insertion. The pancreatic duct was not cannulated nor injected during today's examination. Recommendations Please Avoid anticoagulation and nonsteroidals for 5 days please Antibiotic coverage for total of 14 days please Cholecystectomy per general surgery Repeat ERCP for biliary stent removal in 6 to 8 weeks Patient may have clear liquids today from a GI perspective Please call inpatient GI service with any additional questions or concerns.
--- NOTE | 2023-10-15 13:55 | GI REPORT ---
Patient Name: Yamila Bowman Procedure Date: 10/15/2023 12:40 PM Date of : 1970 Admit Type: Inpatient Age: 53 Gender: Female Attending MD: Maximo Klein DO, Procedure: ERCP Providers: Maximo Klein DO Referring MD: Lisandro Grey Md, Marcel Hollis Indications: For therapy of bile duct stone(s) Medicines: General Anesthesia Complications: No immediate complications. Estimated blood loss: Minimal. Estimated Blood Loss: Estimated blood loss was minimal. Procedure: Pre-Anesthesia Assessment: - Prior to the procedure, a History and Physical was performed, and patient medications, allergies and sensitivities were reviewed. The patient's tolerance of previous anesthesia was reviewed. - The risks and benefits of the procedure and the sedation options and risks were discussed with the patient. All questions were answered and informed consent was obtained. - Patient identification and proposed procedure were verified prior to the procedure by the physician, the nurse and the care specialist. The procedure was verified in the procedure room. - Pre-procedure physical examination revealed no contraindications to sedation. - ASA Grade Assessment: II - A patient with mild systemic disease. - After reviewing the risks and benefits, the patient was deemed in satisfactory condition to undergo the procedure. - The anesthesia plan was to use general anesthesia. - Immediately prior to administration of medications, the patient was re-assessed for adequacy to receive sedatives. - The heart rate, respiratory rate, oxygen saturations, blood pressure, adequacy of pulmonary ventilation, and response to care were monitored throughout the procedure. - The physical status of the patient was re-assessed after the procedure. After obtaining informed consent, the scope was passed under direct vision. Throughout the procedure, the patient's blood pressure, pulse, and oxygen saturations were monitored continuously. The Duodenoscope was introduced through the mouth, and advanced to the duodenum and used to inject contrast into the bile duct. The ERCP was accomplished without difficulty. The patient tolerated the procedure well. Findings: The impregnator operator film was normal. The esophagus was successfully intubated under direct vision without detailed examination of the pharynx, larynx, and associated structures, and upper GI tract. The upper GI tract was grossly normal. The major papilla was congested. The bile duct was deeply cannulated with the short-nosed traction sphincterotome and guidewire (PD not injected or cannulated). Contrast was injected. I personally interpreted the bile duct images. Contrast extended to the hepatic ducts. The lower third of the main bile duct and middle third of the main bile duct contained filling defect(s) thought to be a stone and sludge. Biliary sphincterotomy was made with a monofilament Fusion OMNI sphincterotome using ERBE electrocautery. There was no post-sphincterotomy bleeding. To discover objects, the biliary tree was swept with a 12 mm balloon starting at the bifurcation. A large amount of sludge was swept from the duct. Many pale pigmented stones were removed. No stones remained. One 10 Fr by 8 cm biliary stent with a single external flap and a single internal flap was placed 8 cm into the common bile duct. Bile flowed through the stent. The stent was in good position. The endoscope was withdrawn from the patient. Indomethacin 100 mg was given via suppository to decrease the risk of post-ERCP pancreatitis (PEP). Impression: - The major papilla appeared congested. - A filling defect consistent with a stone and sludge was seen on the cholangiogram. - Choledocholithiasis was found. Complete removal was accomplished by biliary sphincterotomy and balloon extraction. - One biliary stent was placed into the common bile duct. - Indomethacin given to decrease risk of post-ERCP pancreatitis. Recommendation: - Avoid aspirin and nonsteroidal anti-inflammatory medicines for 5 days. - Clear liquid diet today. - Repeat ERCP in 6 weeks to remove stent. - Cholecystectomy per General Srugery - continue antibiotic coverage for 14 days. Maximo Klein D.O. Maximo Klein, 10/15/2023 1:55:16 PM This report has been signed electronically. Note Initiated On: 10/15/2023 12:40 PM Number of Addenda: 0 I attest to the content of the Intraoperative Record and orders documented therein, exceptions below {[id number]}
--- NOTE | 2023-10-15 14:17 | Fluoroscopy Report ---
[place] ERCP biliary ductal CLINICAL HISTORY: ERCP IN OR... TO FOLLOW HIMSELF TECHNIQUE: 7 views were obtained with the C-arm in the OR with the above procedure. Total fluoroscopy time was 21.9 seconds. Radiation dose was 3.5 mGy. Comparison: Comparison is made to ultrasound abdomen 10/14/2023 FINDINGS/IMPRESSION: Intraoperative images were obtained of ERCP, in the final images, no filling def ects are seen. Please correlate with intraoperative fluoroscopy and operative report. ACT 112: Negative or not required by law. Electronically signed by: Bartolo Perez M.D. 10/15/2023 2:15 PM
--- NOTE | 2023-10-15 14:23 | Anesthesiology Progress Note ---
Date of Service October 15, 2023 Anesthesia Post Procedure Vital Signs Vital Signs: Temp Pulse Pulse Pulse Resp BP BP 10/15/23 14:10 68 19 102/71 10/15/23 14:00 80 13 103/72 10/15/23 13:50 90 18 99/64 L 10/15/23 13:44 98.4 F 97 H 22 89/66 L 10/15/23 12:21 98.4 F 68 20 114/76 10/15/23 08:00 10/15/23 07:46 98.4 F 59 L 16 112/76 10/14/23 21:00 97.9 F 54 L 16 110/80 10/14/23 20:22 62 18 123/80 10/14/23 19:40 58 L 10/14/23 16:57 97.7 F 69 16 130/92 Pulse Ox O2 Del Method O2 Flow Rate 10/15/23 14:10 100 Room Air 10/15/23 14:00 99 Room Air 10/15/23 13:50 98 Oxymask 3 10/15/23 13:44 98 Oxymask 6 10/15/23 12:21 99 Room Air 10/15/23 08:00 Room Air 10/15/23 07:46 100 Room Air 10/14/23 21:00 100 Room Air 10/14/23 20:22 98 Room Air 10/14/23 19:40 10/14/23 16:57 97 Room Air Transfer of Care Handoff Completed per policy Notes Mental Status: alert / awake / arousable and participated in evaluation Patient Amnestic to Procedure: Yes Nausea / Vomiting: adequately controlled Pain: adequately controlled Airway Patency, RR, SpO2: stable & adequate BP & HR: stable & adequate Hydration State: stable & adequate Anesthetic Complications: no major complications apparent and Pt Satisfied with anesthetic care
--- NOTE | 2023-10-15 17:37 | Electrocardiogram Report ---
Test Reason : Blood Pressure : / mmHG Vent. Rate : 063 BPM Atrial Rate : 063 BPM P-R Int : 146 ms QRS Dur : 074 ms QT Int : 438 ms P-R-T Axes : 064 052 057 degrees QTc Int : 448 ms Normal sinus rhythm Low voltage QRS Abnormal ECG Confirmed by Marcel Nazario ([id number]) on 10/15/2023 5:36:38 PM Referred By: Lisandro Grey Confirmed By:Rigo Nazario
[2023-10-15] MEDS ORDERED: ESCITALOPRAM OXALATE 20 MG TAB PO SCH (21:00)
[2023-10-16] MEDS: PIPERACILLIN/TAZOBACTAM 4.5 GM in DEXTROSE 5% MINI-B 100 ML IV SCH ×2 (01:03→08:06)
--- NOTE | 2023-10-16 08:04 | Discharge Summary ---
Date of Service October 16, 2023 Admission HPI Per Admitting Provider Pt is 53 yo F with PMH depression/anxiety presenting with jaundice. Pt reports onset of sharp moderate severity RUQ pain on 10/10 about 5 hours after eating large meal heavy in oils/fats. Pain resolved transiently on 10/11. Reports dark urine on 10/11 which has been occurring intermittently since then. Noticed scleral icterus on 10/14 but has not had any further abdominal pain. Denies nausea, vomiting, fever, chills. Pt arrived to ER hemodynamically stable. Initial evaluation significant for AST 367, ALT 604, ALP 178, lipase 96, UA with 1+ bilirubin. RUQ US w/ choledocholithiasis and intra/extrahepatic biliary ductal dilatation, distended gallbladder with stones and sludge but no evidence of acute cholecystitis. ER interventions include Zosyn. At present, pt reports feeling well w/o acute complaint aside from continued mild icterus. Admission Exam Per Admitting Provider Physical Exam: General: well-appearing, no acute distress HEENT: PERRL, EOMI, conjunctivae clear without injection, mildy icteric sclerae, moist mucous membranes, clear oropharynx without exudate or erythema Neck: supple, trachea midline, no thyromegaly, no JVD, no cervical lymphadenopathy CV: RRR, normal S1 and S2, no murmurs Resp: CTAB, no increased work of breathing, no crackles or wheezes Abd: Soft, mild RUQ tenderness, negative Pérez sign, nondistended, no guarding or rebound, no hepatosplenomegaly MSK: Normal bulk of all four extremities Neuro: AOx3, no focal motor or sensory deficits Skin: no rashes or lesions, warm and dry, very faint jaundice Ext: no LE peripheral edema or erythema, capillary refill <2s in all four extremities, 2+ LE peripheral pulses b/l Principal Diagnosis Choledocholithiasis s/p bile duct stent placement Discharge Exam Constitutional WD/WN, vitals as above Eyes + scleral abnormality (jaundiced sclera, most prominent in l. eye) Respiratory normal respiratory effort, lungs clear to auscultation Cardiovascular RRR, no murmur, no edema Gastrointestinal (Abdomen) Inspection/Auscultation: normal bowel sounds Percussion/Palpation: + abdomen tender; no splenomegaly Skin + jaundice Psychiatric A+Ox3, euthymic affect Discharge Data Allergies Allergy/AdvReac Type Severity Reaction Status Date / Time No Known Allergies Allergy Verified 10/14/23 19:25 Consultations 10/14/23 18:37 ED Decision to Admit Stat 10/14/23 21:45 Consult Gastroenterology Routine Procedures Performed Operation Date: 10/15/23 13:35 Actual Procedures p Endoscopic Retrograde Cholangiopancreato(Not Applicable) - Maximo Moyer, Ordered Studies 10/15/23 [place] ERCP biliary ductal Routine Hospital Course (1) Choledocholithiasis: (2) Transaminitis: (3) Anxiety and depression: Plan Patient is 53 yo F with PMH depression/anxiety. Initial evaluation significant for AST 367, ALT 604, ALP 178, lipase 96, UA with 1+ bilirubin. RUQ US w/ choledocholithiasis and intra/extrahepatic biliary ductal dilatation, distended gallbladder with stones and sludge but no evidence of acute cholecystitis. ER interventions include Zosyn. Repeat AST 184, ALT 395, ALP 153, TBili 3.4 (from 6.0) Choledocholithiais -Pt presenting with symptomatic choledocholithiasis with currently low concern for acute cholangitis -Exam and imaging does not suggest acute cholecystitis at present, we will defer surgery consult -GI consulted: -ERCP completed yesterday PM: gallstones removed via balloon; stent placed in CBD - avoid aspirin and NSAIDs for 5 days - started on clear liquid diet yesterday, progressed to full liquids --> reg diet today, mIVFs discontinued - F/U in 6 weeks for stent removal - continue on antibiotics for 12 days --> Ciprofloxacin/Flagyl, 500/500 mg, BID/TID, PO/PO - Tylenol, PRN, for pain control - consult, F/U w/ Gen Surg for possible elective cholecystectomy -Continue Zosyn for now -Zofran PRN nausea, Toradol PRN pain -Trend CBC, CMP Transaminitis -Likely reactive to hepatobiliary obstruction -Management as above -Trend CMP: Repeat AST 184, ALT 395, ALP 153, TBili 3.4 (from 6.0) Anxiety/depression -Continue Lexapro -Pt also takes Abilify, atomoxetine and lamotrigine FENGI: NPO, IVF Code status: Full DVT prophylaxis: SCDs Isolation: None Unit: Medical/surgical Disposition planning: Likely home Total Time Total Time Spent Total Time Spent (In Minutes): see attending attestation Discharge Plan Discharge Items Patient Disposition: Home - Self-Care Reason For Visit: SYMPTOMATIC CHOLEDOCHOLITHIASIS Discharge Diagnosis: choledocholithiasis Condition on Discharge: Good Activity: Resume your previous activity Non-emergency contact: Primary Care Provider and Mingle Operator Call non-emergency contact if: you have any medication questions and you have a fever Follow-up/Referrals: Maximo Moyer DO [Physician] - (ADVISED PATIENT TO CALL DR MOYER'S OFFICE ON 10/18/23 TO MAKE A HOSPITAL FOLLOW UP VISIT) Sloane Bailey DO [Primary Care Provider] - (PATIENT WILL CALL PCP ON 10/18/23 TO MAKE A 7-10 DAY FOLLOW UP) Diet: Regular Addtl Attending Provider Instructions: You were admitted to the hospital for [_]. You were treated with [_]. A discharge summary will be sent to your primary care physician to ensure continuity of care. Please bring this discharge summary with you to your next office appointment so that your provider can review it at that time. Follow-up appointments: [ Make a follow-up appointment with your PCP within the next week. It is very important that you follow up with them shortly after discharge from the hospital.] [ We have requested a follow-up appointment with your primary care physician within one week of discharge. Please call their office if you do not hear from them.] [ You have an appointment with _ on _ at _. If you are unable to make this appointment, or have any other questions, their office can be reached at _.] Keep all your follow-up appointments as already scheduled. If you cannot make an appointment, notify your provider. Medications: Your medication list has been reviewed and reconciled upon discharge to ensure accuracy and continuity of care. An updated list of all your medications is included with your hospital discharge paperwork. Please review this list closely, and make note of any changes. We sent a new medication called [med name] to your pharmacy. Take [med name] ([_]mg) [one tablet] [daily] [for _ days]. We sent a new medication called [med name] to your pharmacy. Take [med name] ([_]mg) [one tablet] [daily] [for _ days]. Take your medications as instructed; do not skip a dose of your medicines. Make sure all of your doctors know every medicine you are taking (including qdrp-ewo-bguokaf medicines, vitamins, and supplements). Call your primary care provider before taking any new medicines (including rvsy-rzo-beusstd medicines, vitamins, and supplements), because some of these may interact with your current medications, or may make your symptoms worse. Tell your primary care provider if you cannot afford your medications. CONTACT YOUR PRIMARY CARE PROVIDER if you experience any of the following: [_] [_] Difficulty following your treatment plan, or difficulty taking medications CALL 911 OR GO TO THE EMERGENCY DEPARTMENT if you experience any of the following: Sudden, severe abdominal pain or nausea/vomiting Severe chest pain, or chest pain that radiates (moves) to your jaw or arm Sudden, severe shortness of breath or difficulty breathing Thank you for allowing us to participate in your care Pending Studies at Discharge: No Stand-Alone Forms: My [facility], Smoking Cessation Medications and DC Order Prescriptions: New ciprofloxacin HCl [Cipro] 500 mg tablet 500 mg PO Q12H Qty: 23 0RF metronidazole 500 mg tablet 500 mg PO Q8H 12 Days Qty: 36 0RF Continued lamotrigine 200 mg tablet 200 mg PO DAILY dextroamphetamine-amphetamine 10 mg tablet 10 mg PO DAILY lisdexamfetamine 40 mg capsule 40 mg PO DAILY escitalopram oxalate 10 mg tablet 10 mg PO DAILY escitalopram oxalate 20 mg tablet 20 mg PO HS aripiprazole 5 mg tablet 5 mg PO DAILY Discharge Orders: Discharge Order (Routine); Ordered 10/16/23 Ordered By: Marcel Vargas Admission Data Admit Date/Time: 10/14/23 19:24 Attending Provider: Marcel Hollis Admit Provider: Libby Mojica Primary Care Provider: Sloane Bailey Other Providers: Demetrio Abarca; Milton Quinteros; Kaden Bruner; Fozia Thakkar; Karen Rachel; Leda Oviedo; Ml Shah; Morgan Khan; Jase Leyva; Maximo Moyer; Dolores Souza; Tania Carson; Vinny Gregory; Darlene Barnes; Lydia Gaines; Sienna Domingo; Estrella Mcdonald; Juan Stauffer; David Swenson; Gautam Denney; Rima Breen; Tato Larson Jr Other Interventions: Discharge Summary Assessment (RN) Last Done: 10/16/23 13:57 Supervising Physician Co-Signing Physician Notes Attending attestation Pt seen and examined in concert with Dr. Vargas. In agreement with the documented findings as noted in the resident documentation with any exceptions or additions as noted here. Resting comfortably in bed without acute complaint at present. On examination, S1/S2 nl RRR no MCG. CTAB. Abd NT/ND BS+ve. Jaundice, scleral icterus present VS: 96/65, 69, 16, 36.7C, 97 RA Choledocholithaisis - GI consult - s/p ERCP and doing well. Complete 2 wk course of cipro, flagyl and follow up with PCP, general surgery for evaluation of potential cholecystectomy. Else see resident documentation as noted. Total attending physician time spent with this patient's care on the day of discharge: 35 minutes.
[2023-10-16] MEDS: ESCITALOPRAM OXALATE 20 MG TAB PO SCH (08:06)
[2023-10-16] MEDS: lamoTRIgine 100 MG TAB PO SCH (08:06)
[2023-10-16] MEDS: ARIPiprazole 5 MG TAB PO SCH (08:07)
== END 2023-10-16 14:39 | disposition home or self-care (01) | DRG 445 ==
LOC: ED 16:54 → 3N 19:24 → SUATTDRO 19:24 → 3N 20:38